=== PATIENT | female | born 1980 | race Caucasian/White ===

== ENCOUNTER 2021-07-03 11:23 | Emergency (ER) | payer OTHER, MEDICAID ==
[~2021-07-03] VITALS: Ht 170.2 cm; Wt 99.8 kg
[2021-07-03] MEDS ORDERED: GABAPENTIN800 M1 PO ×2 (11:43→13:09)
[2021-07-03] MEDS ORDERED: NAPROXEN500 MG PO (11:43)
[2021-07-03] MEDS ORDERED: ASA81BEC PO (11:43)
[2021-07-03] MEDS ORDERED: KLONOPIN0.5 MG PO ×2 (11:44→13:18)
[2021-07-03] MEDS ORDERED: PRISTIQ100 MG PO (11:44)
[2021-07-03] MEDS ORDERED: FLUOXETINE HCL40 MG PO (11:45)
[2021-07-03] MEDS ORDERED: IRON325 M1 PO (11:45)
[2021-07-03] MEDS ORDERED: WARFARIN PO (11:46)
[2021-07-03] MEDS ORDERED: ZYRTEC10 M5 PO (11:46)
[2021-07-03] MEDS ORDERED: PROAIR HFA8.5 GM INH (11:46)
[2021-07-03] MEDS ORDERED: ATORVASTATIN PO (11:47)
[2021-07-03 13:40] VITALS: BP 124/62
== END 2021-07-03 13:41 | disposition home or self-care (01) ==
LOC: M.ERS 11:23
DX: S60.221A Contusion of right hand, initial encounter (principal); S00.11XA Contusion of right eyelid and periocular area, initial encounter; F32.9 Major depressive disorder, single episode, unspecified; F41.9 Anxiety disorder, unspecified; Z79.899 Other long term (current) drug therapy; Z79.01 Long term (current) use of anticoagulants; Z79.82 Long term (current) use of aspirin; Z88.0 Allergy status to penicillin; Y04.8XXA Assault by other bodily force, initial encounter; Y93.89 Activity, other specified; Y92.89 Other specified places as the place of occurrence of the external cause; Y99.8 Other external cause status